=== PATIENT | female | born 1945 | race Caucasian/White ===

== ENCOUNTER 2019-11-19 11:42 | Observation (INO) ==
[2019-11-19] MEDS ORDERED: SODIUM CHLORIDE 0.9% 1,000 ML IV STA (14:04)
[2019-11-19] MEDS ORDERED: ONDANSETRON 4 MG/2 ML VIAL IV STA (14:04)
[2019-11-19 14:15] LABS: Basophils # 0.1 10*3/uL (0.0-0.2); Basophils % 0.7 % (0.0-0.8); Eosinophils # 0.1 10*3/uL (0.0-0.87); Eosinophils % 1.1 % (0.00-10.9); Hematocrit 50.2 VOL% (35.7-47.0); Hemoglobin 16.1 GM/DL (12.0-16.0); Immature Granulocytes % 0.2 %; Immature Granulocytes Absolute 0.02 #; Mean Corpuscular HGB Conc 32.1 GM/DL (32-36); Mean Corpuscular Volume 96.4 FL (87-102); Mean Platelet Volume 10.4 FL (9.6-12.0); Monocytes % 6.7 % (1.7-12.7); Neutrophils % 61.3 % (38.7-73.9); Platelet Count 276 T/CUMM (130-400); Red Blood Count 5.21 MC/CUMM (3.8-5.5); Red Cell Distribution Width 13.2 % (9.3-17.3); White Blood Count 10.1 T/CUMM (4-12)
[2019-11-19 15:13] LABS: Bilirubin,Total 0.4 MG/DL (0.2-1.0); Osmolality,Calculated 259.8 MOS/KG (273-304)
[2019-11-19 15:50] LABS: Apearance,Urine CLEAR (Clear); Bilirubin,Urine Negative (Negative); Blood, Urine Negative (Negative); Glucose,Urine (UA) Negative (Negative); Ketones,Urine 5 mg/dL (Negative); Nitrite,Urine Negative (Negative); Protein,Urine Negative; Urine Color Straw (Yellow); Urine Specific Gravity 1.048 (1.001-1.035); Urine Urobilinogen < 2.0 EU/DL (0.2-1.0); WBC,Urine <1 /HPF (0-6)
[2019-11-19] MEDS ORDERED: CALCIUM CARBONATE CHEW 500 MG TABLET PO PRN (15:56)
[2019-11-19] MEDS ORDERED: DOCUSATE SODIUM 100 MG CAPSULE PO PRN (15:56)
[2019-11-19] MEDS ORDERED: hydrALAZINE 20 MG/1 ML VIAL IV PRN (15:56)
[2019-11-19] MEDS ORDERED: NICOTINE 21 MG/24 HR PATCH TRANSDERM PRN (15:56)
[2019-11-19] MEDS ORDERED: BISACODYL 5 MG TABLET PO PRN (15:56)
[2019-11-19] MEDS ORDERED: PROMETHAZINE 25 MG/1 ML VIAL IM PRN (15:56)
[2019-11-19] MEDS ORDERED: SIMETHICONE CHEW 125 MG TABLET PO PRN (15:56)
[2019-11-19] MEDS ORDERED: LACTULOSE 20 GM/30 ML UDCUP PO PRN (15:56)
[2019-11-19] MEDS ORDERED: ALUMINUM/MAGNES/SIMETH MAX STR 30 ML UDCUP PO PRN (15:56)
[2019-11-19] MEDS ORDERED: ONDANSETRON 4 MG/2 ML VIAL IV PRN (15:56)
[2019-11-19] MEDS ORDERED: ZALEPLON 5 MG CAPSULE PO PRN (15:56)
[2019-11-19] MEDS ORDERED: MAGNESIUM SULF RIDER 2 GM in PREMIX 1 EACH IV PRN ×2 (15:59→17:09)
[2019-11-19] MEDS ORDERED: MAGNESIUM SULF RIDER 4 GM in PREMIX 1 EACH IV PRN ×2 (15:59→17:09)
[2019-11-19] MEDS ORDERED: CYCLOBENZAPRINE 10 MG TABLET PO PRN (17:06)
[2019-11-19] MEDS ORDERED: MEPERIDINE 25 MG/1 ML VIAL IV PRN (17:09)
[2019-11-19] MEDS ORDERED: POTASSIUM CHLORIDE RIDER 10 MEQ in PREMIX 1 EACH IV PRN (17:09)
[2019-11-19] MEDS: ERTAPENEM 1,000 MG in SODIUM CHLORIDE 0.9% 100 ML IV SCH (17:09)
[2019-11-19] MEDS: ENOXAPARIN 40 MG/0.4 ML SYRINGE SUBCUT SCH (17:33)
[2019-11-19] MEDS: SODIUM CHLORIDE 0.9% 1,000 ML IV SCH (17:33)
[2019-11-19] MEDS: CIPROFLOXACIN INJ 400 MG in PREMIX 1 EACH IV SCH (17:58)
[2019-11-19] MEDS: metroNIDAZOLE INJ 500 MG in PREMIX 1 EACH IV SCH (20:45)
[2019-11-19] MEDS: lisinopriL 20 MG TABLET PO SCH (20:46)
[2019-11-19] MEDS: SIMVASTATIN 10 MG TABLET PO SCH (20:46)
[2019-11-20] MEDS: metroNIDAZOLE INJ 500 MG in PREMIX 1 EACH IV SCH ×4 (02:23→22:06)
[2019-11-20] MEDS: ACETAMINOPHEN 325 MG TABLET PO PRN ×2 (02:25→11:36)
[2019-11-20] MEDS: CIPROFLOXACIN INJ 400 MG in PREMIX 1 EACH IV SCH ×2 (03:59→16:34)
[2019-11-20 04:42] LABS: Basophils # 0.1 10*3/uL (0.0-0.2); Basophils % 0.7 % (0.0-0.8); Eosinophils # 0.2 10*3/uL (0.0-0.87); Eosinophils % 2.3 % (0.00-10.9); Hemoglobin 12.9 GM/DL (12.0-16.0); Immature Granulocytes % 0.2 %; Immature Granulocytes Absolute 0.02 #; Lymphocytes # 2.8 10*3/uL (1.4-4.0); Lymphocytes % 33.1 % (21.3-54.2); Mean Corpuscular HGB Conc 33.1 GM/DL (32-36); Mean Corpuscular Volume 95.4 FL (87-102); Mean Platelet Volume 10.5 FL (9.6-12.0); Monocytes % 8.8 % (1.7-12.7); Neutrophils % 54.9 % (38.7-73.9); Platelet Count 246 T/CUMM (130-400); Red Blood Count 4.09 MC/CUMM (3.8-5.5); Red Cell Distribution Width 13.2 % (9.3-17.3); White Blood Count 8.4 T/CUMM (4-12)
[2019-11-20 05:12] LABS: Albumin 3.2 G/DL (3.4-5.0); Bilirubin,Total 0.6 MG/DL (0.2-1.0); Calcium 8.4 MG/DL (8.5-10.1); Osmolality,Calculated 282.1 MOS/KG (273-304); Risk Ratio 2.92; Thyroid Stimulating Hormone 1.61 uIU/ml (0.358-3.74); Total Protein 6.1 G/DL (6.4-8.3); VLDL CHOLESTEROL 13.6 MG/DL
[2019-11-20] MEDS: lisinopriL 20 MG TABLET PO SCH ×2 (09:36→20:37)
[2019-11-20] MEDS: PANTOPRAZOLE 40 MG VIAL IV SCH (09:37)
[2019-11-20] MEDS: SODIUM CHLORIDE 0.9% 1,000 ML IV SCH (09:43)
[2019-11-20] MEDS: ENOXAPARIN 40 MG/0.4 ML SYRINGE SUBCUT SCH (16:39)
[2019-11-20] MEDS: SIMVASTATIN 10 MG TABLET PO SCH (20:37)
[2019-11-20] MEDS: ERTAPENEM 1,000 MG in SODIUM CHLORIDE 0.9% 100 ML IV SCH (20:42)
[2019-11-21] MEDS: SODIUM CHLORIDE 0.9% 1,000 ML IV SCH (02:05)
[2019-11-21] MEDS: metroNIDAZOLE INJ 500 MG in PREMIX 1 EACH IV SCH (03:30)
[2019-11-21 04:36] LABS: Basophils # 0.1 10*3/uL (0.0-0.2); Basophils % 0.7 % (0.0-0.8); Eosinophils # 0.2 10*3/uL (0.0-0.87); Eosinophils % 1.9 % (0.00-10.9); Hematocrit 41.1 VOL% (35.7-47.0); Hemoglobin 13.2 GM/DL (12.0-16.0); Immature Granulocytes % 0.2 %; Immature Granulocytes Absolute 0.02 #; Lymphocytes # 2.1 10*3/uL (1.4-4.0); Lymphocytes % 24.5 % (21.3-54.2); Mean Corpuscular HGB Conc 32.1 GM/DL (32-36); Mean Corpuscular Volume 96.9 FL (87-102); Mean Platelet Volume 10.8 FL (9.6-12.0); Monocytes % 8.5 % (1.7-12.7); Neutrophils % 64.2 % (38.7-73.9); Platelet Count 241 T/CUMM (130-400); Red Blood Count 4.24 MC/CUMM (3.8-5.5); White Blood Count 8.4 T/CUMM (4-12)
[2019-11-21] MEDS: CIPROFLOXACIN INJ 400 MG in PREMIX 1 EACH IV SCH (04:50)
[2019-11-21 05:06] LABS: Albumin 3.4 G/DL (3.4-5.0); Bilirubin,Total 0.7 MG/DL (0.2-1.0); Calcium 8.6 MG/DL (8.5-10.1); Osmolality,Calculated 278.3 MOS/KG (273-304); Total Protein 6.4 G/DL (6.4-8.3)
[2019-11-21] MEDS ORDERED: POTASSIUM CHLORIDE 20 MEQ TABLET PO ONE (07:01)
[2019-11-21 07:56] VITALS: BP 159/67
[2019-11-21] MEDS: lisinopriL 20 MG TABLET PO SCH (08:13)
[2019-11-21] MEDS: PANTOPRAZOLE 40 MG VIAL IV SCH (08:13)
[2019-11-21] MEDS ORDERED: metroNIDAZOLE 500 MG TABLET PO SCH (09:00)
[2019-11-21] MEDS ORDERED: CIPROFLOXACIN 500 MG TABLET PO SCH (09:00)
== END 2019-11-21 10:17 | disposition home or self-care (01) ==
LOC: N.ED 11:42 → N.EDINP 11:42 → N.2W 17:14
PROVIDERS: ADMIT Internal Medicine; ATTEND Internal Medicine